=== PATIENT | female | born 1960 | race Caucasian/White ===

== ENCOUNTER → 2016-11-08 | Emergency (ER) | payer BC ==
[~2016-11-08] VITALS: Wt 109.0 kg
[~2016-11-08] MED LIST: ALBU8.5H3 INH; AZIT250T94 PO; CHLO4TAB PO; D-ME473S18 PO; HYDR-3498 PO; IBUP-1542 PO; IBUPROFEN 600 MG TAB PO ONE; LEVO500T72 PO
--- NOTE | 2016-11-08 20:07 | ERD ---
ER Documentation Chief Complaint Date/Time DATE: 11/08/16 TIME: 20:07 Chief Complaint cough/fever/sore throat/ both earache x 4 days HPI This 56-year-old female complains of fever cough and sore throat and ear pain on the left for last 4 days. She denies vomiting, chest pain, shortness breath , abdominal pain. ROS All systems reviewed and are negative except as per history of present illness. Medications Home Meds Active Scripts Azithromycin* (Zithromax*) 250 Mg Tablet, 250 MG PO .ZPACK DIRECTED, #6 TAB TAKE 500 MG (2 TABS) THE FIRST DAY THEN 250 MG (1 TAB) DAYS 2-5 Prov:JULY ALATORRE MD 11/08/16 Dextromethorphan Hb-Promethazine Hcl (Promethazine DM Syrup) 473 Ml Syrup, 5 ML PO Q6H Y for COUGH, #4 OZ Prov:JULY ALATORRE MD 11/08/16 Ibuprofen* (Motrin*) 600 Mg Tab, 600 MG PO Q6, #15 TAB Prov:JULY ALATORRE MD 11/08/16 Azithromycin* (Zithromax*) 250 Mg Tablet, 250 MG PO .ZPACK DIRECTED, #6 TAB TAKE 500 MG (2 TABS) THE FIRST DAY THEN 250 MG (1 TAB) DAYS 2-5 Prov:JULY ALATORRE MD 11/08/16 Chlorpheniramine Maleate* (Chlor-Trimeton*) 4 Mg Tablet, 4 MG PO Q4H, #12 TAB NOT TO EXCEED 24 MG /24 HRS Prov:TALI GO 04/23/15 Levofloxacin* (Levaquin*) 500 Mg Tablet, 500 MG PO DAILY, #7 TAB Prov:DONAVANTALI 04/23/15 Albuterol Sulfate* (Proair HFA*) 8.5 Gm Hfa.aer.ad, 2 PUFF INH Q4H Y for WHEEZING AND SOB, #1 INH Prov:TALI GO 04/23/15 Hydrocodone Bit-Acetaminophen* ([place]*) 5-325 Mg Tab, 1 TAB PO Q6 Y for PAIN, # 7 TAB Prov:SARAH MACIAS PA-C 03/17/15 Ibuprofen* (Motrin*) 600 Mg Tab, 600 MG PO Q6, #20 TAB Prov:SARAH MACIAS PA-C 03/17/15 Allergies Allergies: Coded Allergies: No Known Allergy (Unverified , 11/08/16) PMhx/Soc History of Surgery: Yes (hernia repair, hysterectomy) Anesthesia Reaction: No Hx Neurological Disorder: No Hx Respiratory Disorders: Yes (asthma) Hx Cardiac Disorders: No Hx Psychiatric Problems: No Hx Miscellaneous Medical Probl: No Hx Alcohol Use: No Hx Substance Use: No Hx Tobacco Use: No Smoking Status: Never smoker Physical Exam Vitals Vital Signs Date Time Temp Pulse Resp B/P Pulse Ox O2 Delivery O2 Flow Rate FiO2 11/08/16 19:35 100.9 99 20 147/69 97 Physical Exam Const: [] Alert, [id number] per Head: Atraumatic Eyes: Normal Conjunctiva ENT: Normal External Ears, Nose and Mouth. Left TM is red and bulging. Neck: Full range of motion..~ No meningismus. Resp: Clear to auscultation bilaterally. No wheezing or rales or retractions appreciated Cardio: Regular rate and rhythm, no murmurs Abd: Soft, non tender, non distended. Normal bowel sounds Skin: No petechiae or rashes Back: No midline or flank tenderness Ext: No cyanosis, or edema Neur: Awake and alert Psych: Normal Mood and Affect Results 24 hrs Current Medications Medications (Trade) Dose Ordered Sig/Olga Route PRN Reason Start Time Stop Time Status Last Admin Dose Admin Ibuprofen (Motrin) 600 mg ONCE ONCE PO 11/08/16 20:30 11/08/16 20:31 Procedures/MDM Patient presents with URI symptoms and signs of otitis media. She will treated with Zithromax, ibuprofen and promethazine. The patient was stable with no new complaints during the ER course. Clinically, there is no current evidence to suggest meningitis, sepsis, acute abdomen, pneumonia, acute coronary syndrome, pulmonary embolism, or any other emergent condition appearing to require further evaluation or hospitalization. The patient should certainly return for any new or worsening symptoms per the aftercare instructions. They should otherwise follow-up with her primary care doctor for reevaluation this week. Departure Diagnosis: Primary Impression: Otitis media Otitis media type: suppurative Laterality: left Chronicity: acute Recurrence: not specified as recurrent Spontaneous tympanic membrane rupture: without spontaneous rupture Qualified Code: H66.002 - Acute suppurative otitis media of left ear without spontaneous rupture of tympanic membrane, recurrence not specified Condition: Stable Patient Instructions: Otitis Media, Abx Tx (Adult) Additional Instructions: Cheque otro vez con ardon doctor primario en el proximo estrada or regresa para mas o nueva simptomas. JULY ALATORRE MD Nov 08, 2016 20:07
[2016-11-08 20:30] VITALS: TEMP 98.9
== END | disposition home or self-care (01) ==
LOC: FTE 19:19
DX: H66.002 Acute suppurative otitis media without spontaneous rupture of ear drum, left ear (principal); J45.909 Unspecified asthma, uncomplicated
CPT/HCPCS: 99284; Z7610

== ENCOUNTER 2017-03-16 18:11 | Emergency (ER) | payer BC ==
[~2017-03-16] VITALS: Ht 160 cm; Wt 111.0 kg
[~2017-03-16 18:11] MED LIST changes: -IBUPROFEN 600 MG TAB PO ONE
[2017-03-16 18:14] VITALS: Ht 160 cm; Wt 111.0 kg
[2017-03-16] MEDS ORDERED: IBUPROFEN 200 MG TAB PO ONE (19:00)
--- NOTE | 2017-03-16 21:07 | RADRPT ---
PROCEDURE: US Breast. CLINICAL INDICATION: Left breast and axillary pain. TECHNIQUE: Targeted sonographic imaging of the left breast and axilla was performed. COMPARISON: None. FINDINGS: The soft tissues of the left breast and axilla are normal. There is no evidence of architectural di stortion, mass or fluid collection. IMPRESSION: No evidence of left breast or axillary mass or fluid collection. Clinical follow-up advised. Dedic ated breast imaging follow-up may be obtained as clinically indicated. RPTAT: HLST .Reshma Lynch MD, MD Date Time Electronically viewed and signed by .Reshma Lynch MD, MD on 03/16/2017 21:07 .T/
--- NOTE | 2017-03-16 21:17 | ERD ---
ER Documentation Chief Complaint Date/Time DATE: 03/16/17 TIME: 21:15 Chief Complaint abcess lt arm pit HPI This 56-year-old female presents to emergency department with complaint of left axilla pain radiating to left breast. Patient denies any redness or warmth, pain is reproducible to touch. Patient denies nausea, vomiting, fever, chills, chest pain, shortness of breath, palpitations, or dizziness. Patient has no history of abnormal mammogram denies history of skin abscesses. Patient denies history of injury ROS All systems reviewed and are negative except as per history of present illness. Medications Home Meds Active Scripts Naproxen* (Naprosyn*) 500 Mg Tablet, 500 MG PO BID Y for PAIN AND/OR INFLAMMATION for 10 Days, #20 TAB Prov:SAKSHI CALIXTO 03/16/17 Azithromycin* (Zithromax*) 250 Mg Tablet, 250 MG PO .PeterPAJONATHAN DIRECTED, #6 TAB TAKE 500 MG (2 TABS) THE FIRST DAY THEN 250 MG (1 TAB) DAYS 2-5 Prov:JULY ALATORRE MD 11/08/16 Dextromethorphan Hb-Promethazine Hcl (Promethazine DM Syrup) 473 Ml Syrup, 5 ML PO Q6H Y for COUGH, #4 OZ Prov:JULY ALATORRE MD 11/08/16 Ibuprofen* (Motrin*) 600 Mg Tab, 600 MG PO Q6, #15 TAB Prov:JULY ALATORRE MD 11/08/16 Azithromycin* (Zithromax*) 250 Mg Tablet, 250 MG PO .ZPAJONATHAN DIRECTED, #6 TAB TAKE 500 MG (2 TABS) THE FIRST DAY THEN 250 MG (1 TAB) DAYS 2-5 Prov:JULY ALATORRE MD 11/08/16 Chlorpheniramine Maleate* (Chlor-Trimeton*) 4 Mg Tablet, 4 MG PO Q4H, #12 TAB NOT TO EXCEED 24 MG /24 HRS Prov:TALI GO DO 04/23/15 Levofloxacin* (Levaquin*) 500 Mg Tablet, 500 MG PO DAILY, #7 TAB Prov:TALI GO DO 04/23/15 Albuterol Sulfate* (Proair HFA*) 8.5 Gm Hfa.aer.ad, 2 PUFF INH Q4H Y for WHEEZING AND SOB, #1 INH Prov:TALI GO DO 04/23/15 Hydrocodone Bit-Acetaminophen* ([place]*) 5-325 Mg Tab, 1 TAB PO Q6 Y for PAIN, # 7 TAB Prov:SARAH MACIAS PA-C 03/17/15 Ibuprofen* (Motrin*) 600 Mg Tab, 600 MG PO Q6, #20 TAB Prov:SARAH MACIAS PA-C 03/17/15 Allergies Allergies: Coded Allergies: No Known Allergy (Unverified , 11/08/16) PMhx/Soc History of Surgery: Yes (hernia repair, hysterectomy) Anesthesia Reaction: No Hx Neurological Disorder: No Hx Respiratory Disorders: Yes (asthma) Hx Cardiac Disorders: No Hx Psychiatric Problems: No Hx Miscellaneous Medical Probl: No Hx Alcohol Use: No Hx Substance Use: No Hx Tobacco Use: No Smoking Status: Never smoker Physical Exam Vitals Vital Signs Date Time Temp Pulse Resp B/P Pulse Ox O2 Delivery O2 Flow Rate FiO2 03/16/17 18:14 98.1 82 18 157/84 98 Physical Exam Const: Well-appearing, well-hydrated, in no acute distress Head: Atraumatic Eyes: Normal Conjunctiva, PERRLA, EOMI ENT: Normal External Ears, Nose and Mouth, mucous membranes moist. Neck: Resp: Clear to auscultation, respirations even and unlabored, no respiratory distress Breast exam: Fibrous breast tissue palpated, no induration papule or nodule. Nipples are everted, no discharge, symmetric. Cardio: Regular rate and rhythm, no murmurs, S1-S2, no S3-S4 Abd: Soft, non tender, non distended. No epigastric Skin: No petechiae or rashes no erythema, induration, abscess papule, carbuncle or pustule noted in left axilla Back: No midline or flank tenderness Ext: Neur: Awake and alert Psych: Normal Mood and Affect Results 24 hrs Current Medications Medications (Trade) Dose Ordered Sig/Olga Route PRN Reason Start Time Stop Time Status Last Admin Dose Admin Ibuprofen (Motrin) 400 mg ONCE ONCE PO 03/16/17 19:00 03/16/17 19:05 DC 03/16/17 19:38 Procedures/MDM EKG: Normal sinus rhythm at a ventricular rate of 68 bpm Rate/Rhythm: Normal Sinus Rhythm QRS, ST, T-waves: No changes consistent w/ acute ischemia Impression: No evidence of ischemia or arrhythmia PROCEDURE: US Breast. CLINICAL INDICATION: Left breast and axillary pain. TECHNIQUE: Targeted sonographic imaging of the left breast and axilla was performed. COMPARISON: None. FINDINGS: The soft tissues of the left breast and axilla are normal. There is no evidence of architectural distortion, mass or fluid collection. IMPRESSION: No evidence of left breast or axillary mass or fluid collection. Clinical follow-up advised. Dedicated breast imaging follow-up may be obtained as clinically indicated. Electronically viewed and signed by .Reshma Lynch MD, MD on 03/16/2017 21:07 This pleasant 56-year-old female presents to emergency department right left axilla pain radiating to the left breast. Pain is described as a burning sensation. Symptomatic 3 weeks. Low suspicion for abscess, herpes zoster, malignant mass or acute coronary syndromes. Patient treated with Toradol, and left breast ultrasound including axilla with no evidence of left breast or axillary mass or fluid collection. ECG normal sinus rhythm without ectopy or ST changes. Patient will be discharged home with Naprosyn 500 mg 1 tab p.o. twice daily 10 days, warm compresses to left axilla, follow-up with primary care physician in 38 hours for reassessment, return to emergency department for chest pain, shortness of breath, dizziness, or palpitations. I feel the patient is stable for discharge at this time. I have discussed results, examination findings, the treatment plan with the patient and family present prior to discharge. Indications for emergent reevaluation, side effects of medication were also discussed. All questions were answered. Patient verbalizes understanding and agrees with plan of care. Departure Diagnosis: Primary Impression: Left axillary pain Additional Impression: Breast pain, left Condition: Good Patient Instructions: Breast Exam, Clinical, Breast Health: Normal Breast Changes Ref[facility]: [facility] REFERRAL LIST Additional Instructions: Thank you for for coming to [facility] for your care today. Please ask your nurse or provider if you have questions about your care today and do not leave until all your questions have been answered. Please use any medications given as directed and follow-up with your doctor (or the doctor you were referred to) in the next 2-3 days. If you do not have a primary care doctor you may [place] [facility] [place] You may also use motrin and tylenol as needed for fever and/or pain unless instructed otherwise by your provider or nurse. Indications for more urgent follow-up have been discussed, but you may return to the Emergency Department at ANY time for any worrisome or worsening symptoms. If you have abdominal pain, please know that no test or exam you received is perfect and you should follow up within 8 hours for continued pain. If you had any imaging studies today, such as an X-Ray or CT Scan, these studies will be reviewed later by a radiologist. You will be called if there are important findings that were not identified today, so make sure the contact information you provided at registration is correct. If you received any narcotic pain control medicine today, such as Vicodin, Morphine or Dilaudid, your coordination and judgment may be affected for a number of hours. Please do not drive or operate heavy machinery, and you may want someone to assist you at home. If you were given a prescription for narcotic medication, be aware that it is very addictive- use sparingly and only if necessary. SAKSHI CALIXTO Mar 16, 2017 21:16
[2017-03-16] MEDS ORDERED: NAPR-260 PO (21:27)
[2017-03-16 22:40] VITALS: BP 148/77; PULSE 70; RESP 18; TEMP 98.6
== END 2017-03-16 22:41 | disposition home or self-care (01) ==
LOC: FTE 18:11
DX: M79.622 Pain in left upper arm (principal); N64.4 Mastodynia; J45.909 Unspecified asthma, uncomplicated
CPT/HCPCS: 76642; 93005; Z7610

== ENCOUNTER 2017-11-03 19:53 | Inpatient (IN) | END 2017-11-06 12:45 | disposition home or self-care (01) | DRG 872 ==

== ENCOUNTER 2019-01-12 12:27 | Emergency (ER) | payer BC ==
[~2019-01-12] VITALS: Ht 160 cm; Wt 101.1 kg
[~2019-01-12 12:27] MED LIST changes: +ACET325T33 PO; -ALBU8.5H3 INH; +AMLO-147 PO; -AZIT250T94 PO; +AZIT500T5 PO; -CHLO4TAB PO; -D-ME473S18 PO; +Guaifenesin/Dm (Sr) PO; -HYDR-3498 PO; -IBUP-1542 PO; +IBUP-1561 PO; -LEVO500T72 PO
[2019-01-12 12:36] VITALS: Ht 160 cm; Wt 101.1 kg
--- NOTE | 2019-01-12 12:45 | ERD ---
ER Documentation Chief Complaint Chief Complaint R SIDED ARM WEAKNESS, PAIN; DIFFICULTY SPEAKING @ 9AM. HPI This is a 58-year-old woman complaining of posterior headache, difficulty speaking, crying, paresthesias to the right side of her body and around the mouth after having an argument with her . She admits to feeling anxious and extremely upset after the argument and states her symptoms lasted for about 45 minutes and then resolved spontaneously. She has mild headache at this time but denies blurry vision, no slurred speech or weakness in her arms or legs, no gait ataxia, no complaints of chest pain or shortness of breath, no loss of consciousness. Patient denies abdominal pain, vomiting, or diarrhea ROS All systems reviewed and are negative except as per history of present illness. Medications Home Meds Active Scripts Alprazolam* (Xanax*) 0.5 Mg Tab, 0.5 MG PO TID PRN for ANXIETY, #12 TAB Prov:DAMIAN HARVEY MD 01/12/19 Ibuprofen* (Motrin*) 600 Mg Tab, 600 MG PO Q8 PRN for PAIN AND/OR INFLAMMATION, #30 TAB Prov:DAMIAN HARVEY MD 01/12/19 Reported Medications Losartan Potassium* (Losartan Potassium*) 50 Mg Tablet, 50 MG PO DAILY, TAB 01/12/19 Discontinued Scripts Ibuprofen* (Motrin*) 400 Mg Tab, 400 MG PO Q8, #15 TAB Prov:KALEY MCELROY MD 09/22/18 Acetaminophen* (Tylenol*) 325 Mg Tablet, 2 TAB PO Q8 PRN for PAIN AND OR ELEVATED TEMP, #20 TAB Prov:KALEY MCELROY MD 09/22/18 Azithromycin* (Azithromycin*) 500 Mg Tablet, 500 MG PO DAILY for 4 Days, #4 TAB Prov:OZ VALE [employer] 11/06/17 [Guaifenesin/Dm (Sr)] 1 TAB TABSR No Conflict Check, 1 TAB PO BID for 7 Days Prov:OZ VALE NP 11/06/17 Amlodipine Besylate* (Amlodipine Besylate*) 10 Mg Tablet, 10 MG PO DAILY, #30 TAB Prov:OZ VALE [employer]. [employer] 11/06/17 Allergies Allergies: Coded Allergies: No Known Allergy (Unverified , 01/12/19) PMhx/Soc Asthma, obesity, hypertension, History of Surgery: Yes (hernia repair, finger sx) Anesthesia Reaction: No Hx Neurological Disorder: No Hx Respiratory Disorders: Yes (asthma) Hx Cardiac Disorders: Yes (htn) Hx Psychiatric Problems: No Hx Miscellaneous Medical Probl: No Hx Alcohol Use: No Hx Substance Use: No Hx Tobacco Use: No FmHx Family History: No diabetes Physical Exam Vitals Vital Signs Date Temp Pulse Resp B/P (MAP) Pulse Ox O2 O2 Flow FiO2 Time Delivery Rate 01/12/19 98.2 60 20 151/61 100 Room Air 15:29 (91) 01/12/19 63 20 169/71 100 Room Air 14:00 (103) 01/12/19 98.2 72 12 153/54 98 Room Air 12:41 (87) 01/12/19 98.1 68 20 161/77 98 12:36 (105) Physical Exam GENERAL: Well-developed, well-nourished, appears anxious and tearful, afebrile HEENT: Moist mucous membranes, pink conjunctiva, no cervical spine tenderness or step-off deformities, no goiter, no jaundice or icterus, extraocular movements intact without pain. No submandibular induration, and no pharyngeal erythema NEURO: Alert and oriented 3, cranial nerves II through XII intact bilaterally, pupils equal round reactive to light, no focal deficits or facial asymmetry, sensation intact distally Strength 5/5 in upper and lower extremities bilaterally CARDIAC: Regular rate and rhythm, no murmurs rubs or gallops LUNGS: Clear bilaterally no wheezing crackles or stridor ABDOMEN: Soft nontender, no guarding, no rigidity, no rebound, no psoas sign no obturator sign. Normoactive bowel sounds SKIN: Warm and dry to touch, no abrasions, contusions, or hematomas, no lacerations, no ecchymosis, no target lesions, and without ulcers EXTREMITIES: No clubbing cyanosis or edema, calves are bilaterally symmetrical, no Homans sign, no popliteal cord sign. Distal pulses equal and bilateral PSYCH: Anxious and tearful Result Diagram: 01/12/19 1304 01/12/19 1304 Results 24 hrs Laboratory Tests Test 01/12/19 13:04 01/12/19 14:31 White Blood Count 6.8 10^3/ul Red Blood Count 4.54 10^6/ul Hemoglobin 12.7 g/dl Hematocrit 39.6 % Mean Corpuscular Volume 87.2 fl Mean Corpuscular Hemoglobin 28.0 pg Mean Corpuscular Hemoglobin Concent 32.1 g/dl Red Cell Distribution Width 12.5 % Platelet Count 222 10^3/UL Mean Platelet Volume 12.0 fl Immature Granulocytes % 0.100 % Neutrophils % 47.8 % Lymphocytes % 41.2 % Monocytes % 8.1 % Eosinophils % 2.1 % Basophils % 0.7 % Nucleated Red Blood Cells % 0.0 /100WBC Immature Granulocytes # 0.010 10^3/ul Neutrophils # 3.2 10^3/ul Lymphocytes # 2.8 10^3/ul Monocytes # 0.6 10^3/ul Eosinophils # 0.1 10^3/ul Basophils # 0.1 10^3/ul Nucleated Red Blood Cells # 0.0 10^3/ul Sodium Level 141 mmol/L Potassium Level 4.3 mmol/L Chloride Level 102 mmol/L Carbon Dioxide Level 29 mmol/L Anion Gap 10 Blood Urea Nitrogen 21 mg/dl Creatinine 0.69 mg/dl Est Glomerular Filtrat Rate mL/min > 60 mL/min Glucose Level 102 mg/dl Calcium Level 9.9 mg/dl Total Bilirubin 0.3 mg/dl Direct Bilirubin 0.00 mg/dl Indirect Bilirubin 0.3 mg/dl Aspartate Amino Transf (AST/SGOT) 23 IU/L Alanine Aminotransferase (ALT/SGPT) 19 IU/L Alkaline Phosphatase 75 IU/L Troponin I < 0.012 ng/ml Total Protein 8.2 g/dl Albumin 4.7 g/dl Globulin 3.50 g/dl Albumin/Globulin Ratio 1.34 Lipase 75 U/L Urine Color COLORLESS Urine Clarity CLEAR Urine pH 6.0 Urine Specific [place] 1.003 Urine Ketones NEGATIVE mg/dL Urine Nitrite NEGATIVE mg/dL Urine Bilirubin NEGATIVE mg/dL Urine Urobilinogen NEGATIVE mg/dL Urine Leukocyte Esterase NEGATIVE Daniel/ul Urine Hemoglobin NEGATIVE mg/dL Urine Glucose NEGATIVE mg/dL Urine Total Protein NEGATIVE mg/dl Current Medications Medications Dose Sig/Olga Start Time Status Last (Trade) Ordered Route PRN Stop Time Admin Dose Reason Admin Lorazepam 0.5 mg ONCE ONCE 01/12/19 DC 01/12/19 (Ativan) PO 13:00 13:05 01/12/19 13:01 Ketorolac 15 mg ONCE STAT 01/12/19 DC 01/12/19 Tromethamine IV 12:53 13:05 (Toradol) 01/12/19 12:56 Sodium 500 ml @ Q1H STAT 01/12/19 DC 01/12/19 Chloride 500 mls/hr IV 12:53 13:06 01/12/19 13:52 Ondansetron 4 mg ONCE STAT 01/12/19 DC 01/12/19 HCl (Zofran IV 12:53 13:05 Inj) 01/12/19 12:56 Procedures/MDM IV line was established patient was placed on cardiac rehabilitation program director rhythm strip revealed a sinus rhythm at about 70 bpm with upright P and T waves. Patient was afebrile EKG performed, read by me revealed a normal sinus rhythm at 65 bpm, normal axis, narrow QRS complex, first-degree AV block at 266 ms, no concerning ST elevations or depressions noted I administered 500 cc normal saline IV, Toradol 15 mg IV, Zofran 4 mg IV, lorazepam 0.[address] scan of the brain was negative for acute bleed mass or shift. CBC and electrolytes are normal, liver function tests are normal, troponin was negative, urine analysis negative for infection. Differential diagnoses considered, included but not limited to acute coronary syndrome, pulmonary embolism, aortic dissection, abdominal aortic aneurysm, sepsis, stroke, meningitis, encephalitis, pneumonia, appendicitis, cholecystitis, bowel obstruction, pyelonephritis, nephrolithiasis, cystitis, as well as metabolic, hematologic, and electrolyte abnormalities. As well as abscess, cellulitis, fractures, and dislocations. Patient feels much better at this time, and vital signs are normal, symptoms have improved. I did give strict instructions to return to the ED if symptoms continue or worsen, patient will otherwise follow-up with primary care physician. Patient understood instructions and agreed to plan. Disclaimer: Inadvertent spelling and grammatical errors are likely due to EHR/dictation software use and do not reflect on the overall quality of patient care. Also, please note that the electronic time recorded on this note does not necessarily reflect the actual time of the patient encounter. Departure Diagnosis: Primary Impression: Acute anxiety Additional Impressions: Paresthesias Headache Headache type: tension-type Headache chronicity pattern: acute headache Intractability: not intractable Qualified Codes: G44.209 - Tension-type headache, unspecified, not intractable Condition: DAMIAN Hernandez MD January 12, 2019 12:45
[2019-01-12] MEDS ORDERED: SOD CHLORIDE 0.9% 500 ML IV STA (12:53)
[2019-01-12] MEDS ORDERED: KETOROLAC 15 MG INJ IV STA (12:53)
[2019-01-12] MEDS ORDERED: ONDANSETRON 4 MG INJ IV STA (12:53)
[2019-01-12] MEDS ORDERED: LORAZEPAM 0.5 MG TAB PO ONE (13:00)
[2019-01-12] MEDS ORDERED: LOSA50TA14 PO (13:25)
[2019-01-12] MEDS ORDERED: IBUP-1542 PO (14:51)
[2019-01-12] MEDS ORDERED: ALPR0.5T PO (14:51)
[2019-01-12 15:29] VITALS: BP 151/61; PULSE 60; RESP 20
== END 2019-01-12 15:34 | disposition home or self-care (01) ==
LOC: E/R 12:27
DX: F41.9 Anxiety disorder, unspecified (principal); R20.2 Paresthesia of skin; G44.209 Tension-type headache, unspecified, not intractable; I10 Essential (primary) hypertension; J45.909 Unspecified asthma, uncomplicated
CPT/HCPCS: 36415; 70450; 80053; 81003; 83690; 84484; 85025; 93005; 96374; 96375; 99285; J1885; J2405; J7040; Z7610